=== PATIENT | female | born 1980 | race Hispanic/Latino ===

== ENCOUNTER 2024-01-21 08:01 | Day surgery (SDC) | payer OTHER ==
[2024-01-18 11:27] VITALS: BMI 32.4
[2024-01-21] MEDS ORDERED: PROPOFOL 80 ML ONE (09:48)
== END 2024-01-21 11:20 | disposition home or self-care (01) ==
LOC: CSHSDC 08:01
PROVIDERS: ATTEND Internal Medicine Gastroenterology
PROC: 0DJD8ZZ Inspection of Lower Intestinal Tract, Via Natural or Artificial Opening Endoscopic (ICD-10-PCS; principal; 2024-01-21)
DX: Z12.11 Encounter for screening for malignant neoplasm of colon (principal); M54.10 Radiculopathy, site unspecified; G43.909 Migraine, unspecified, not intractable, without status migrainosus; F41.9 Anxiety disorder, unspecified; E78.5 Hyperlipidemia, unspecified; Z79.899 Other long term (current) drug therapy
CPT/HCPCS: J2704

== ENCOUNTER 2024-06-18 14:36 | Outpatient (CLI) | payer OTHER | END 2024-06-18 14:37 | disposition home or self-care (01) | LOC: CSHMAMMO 14:36 | PROVIDERS: ATTEND Specialist | DX: Z12.31 Encounter for screening mammogram for malignant neoplasm of breast (principal); M85.88 Other specified disorders of bone density and structure, other site | CPT/HCPCS: 77063; 77067; 77080 ==